=== PATIENT | female | born 1950 | race Caucasian/White ===

== ENCOUNTER 2018-02-15 09:58 | Day surgery (SDC) | payer OTHER, SELFPAY ==
[2018-02-09 16:26] VITALS: BMI 17.8
[2018-02-15 11:23] VITALS: BP 114/61; PULSE 75; RESP 14; TEMP 37.1; O2SAT 100
[2018-02-15 11:25] VITALS: BMI 17.8
[2018-02-15] MEDS: LACTATED RINGERS 1,000 ML 42 ML IV (12:02)
[2018-02-15] MEDS: CEFAZOLIN 1 GM VIAL IV (13:08)
--- NOTE | 2018-02-15 13:26 | SUR.OPER ---
Supine on padded OR bed, head on pillow, arms secured on padded arm boards at <90 degrees abduction, legs uncrossed, safety belt at thigh, tape over blanket over lower legs.
[2018-02-15] MEDS: LIDOCAINE 1% W/EPI INJ 20 ML INJ (13:32)
[2018-02-15] MEDS: BUPIVACAINE 0.5% (PF) VIAL 30 ML INJ (13:33)
--- NOTE | 2018-02-15 14:04 | PM.OP.1 ---
Operative Date/Time/Diagnoses Date of procedure: 02/15/18 Time of procedure: 14:04 Pre-op diagnosis: Incarcerated Right femoral hernia Post-op diagnosis: same Procedure & Clinicians Procedure: Repair of right femoral hernia Same procedure as scheduled: Yes Surgeon: Mayela Pappas Anesthesia Type: MAC +/- (Dr. Waldrop) and Local Operative Notes Findings: Small femoral hernia containing peritoneum and peritoneal fluid. Large direct defect Closure Type: primary Specimen(s): none sent Implants & Drains: Medium-size Pro Loop mesh plug and patch implant Estimated Blood Loss (mL): 10 Procedure in detail: After obtaining informed consent, patient brought the operating room placed in supine position on the operating table. Following successful induction of deep sedation per anesthesia, appropriate padding of all bony prominences, placement of appropriate monitors, the right groin is prepped and draped in the standard surgical fashion. A time-out was held per [facility] protocol. We began the procedure by performing an ileal inguinal nerve block. A mixture of local anesthetics was infiltrated medial to the anterior superior iliac spine on the right. We continued by infiltrating the same mixture just superior and lateral to the pubic tubercle. An incision was created this site and carried down through the skin and subcutaneous tissue as well as Kristian's fascia. This revealed the external oblique aponeurosis. Just inferior to the inguinal ligament, we were able to identify a femoral hernia. This hernia was carefully worked back into the abdominal cavity through the tiny opening. We turned our attention to repair of the defect. We elected to repair this with a medium piece of Pro Loop mesh. The plug was deployed into a fairly large direct defect just medial to the superior pubic ramus. It was sewn to the muscle superiorly, the pubic tubercle medially, and the periosteum of the pubic ramus laterally being sure that all vascular structures were appropriately protected. The peritoneal cavity was never penetrated. The muscle was then pulled over the plug and sewn to the most internal fibers of the inguinal ligament. The entire repair was buttressed with the onlay patch having trimmed it to an appropriate size this was sewn into place at the pubic tubercle medially and laid over the muscular sutures. The wound was then checked for hemostasis and irrigated copiously with warm saline solution. It was aspirated free of all fluid and particulate matter. The external oblique aponeurosis was closed with Vicryl Kristian's fascia was closed with Vicryl and Monocryl stitches were placed in the skin. All sponge, needle, and instrument counts were correct at the conclusion of the case. The patient tolerated the procedure very well. She was allowed to wake from anesthesia and taken to the postanesthesia care unit in good condition. Complications: none Condition: stable Disposition: PACU Plan for aftercare: 1. Discharge to home 2. Follow up the office in 2 weeks
[2018-02-15 14:05] VITALS: BP 104/56; PULSE 88; RESP 15; TEMP 36.4; O2SAT 99
[2018-02-15 14:20] VITALS: BP 113/68; PULSE 89; RESP 16; TEMP 37; O2SAT 98
--- NOTE | 2018-02-15 14:26 | P.OP.PRE_ITS ---
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
== END 2018-02-15 15:10 | disposition home or self-care (01) ==
PROVIDERS: PCP Family Medicine Geriatric Medicine; Visit Provider Surgery
PROC: (CPT 49550; principal; 2018-02-15 13:15)
DX: K41.90 Unilateral femoral hernia, without obstruction or gangrene, not specified as recurrent (principal)
CPT/HCPCS: 49550; C1781; J0690; J2250; J3010

== ENCOUNTER 2024-08-23 08:30 | Outpatient (RCR) | payer MEDICARE, OTHER, SELFPAY ==
--- NOTE | 2024-07-30 08:32 | RT ---
educated on acepella use and care
--- NOTE | 2024-08-23 09:24 | RT ---
helped pt with vest and accapella
== END 2024-08-23 10:30 ==
LOC: PUL 08:30
PROVIDERS: PCP Student in an Organized Health Care Education/Training Program; Referring Provider Internal Medicine Pulmonary Disease; Visit Provider Internal Medicine Pulmonary Disease
DX: R09.02 Hypoxemia (principal)
CPT/HCPCS: G0237; G0238